=== PATIENT | male | born 1965 | race Caucasian/White ===

== ENCOUNTER 2024-06-21 23:49 | Emergency (ER) | payer SELFPAY ==
--- NOTE | ~2024-06-21 | XR_ITS ---
Portable chest x-ray Comparison: None Clinical History: Dyspnea Findings: Lungs are clear, without focal consolidation or pleural effusion. Cardiomediastinal silho uette is mildly prominent, with pacemaker device. Bones and soft tissues are unremarkable. Impression: Clear lungs. Mild cardiomegaly with pacemaker device. Reviewed, dictated and finalized at location . Impression: Clear lungs. Mild cardiomegaly with pacemaker device.
--- NOTE | ~2024-06-21 | CT_ITS ---
CT of the Abdomen and Pelvis: Indication: Bloating Technique: 2.5 mm axial scans were obtained through the abdomen and pelvis following intravenous adm inistration of 100 cc of Omnipaque 350. Dose reduction technique was used on this scan by utilizing a utomated exposure control and iterative reconstruction technique. The dose-length product (DLP) was 2 02.65 mGy-cm. Findings: Scans through the lung bases are unremarkable. Cardiomegaly noted. The liver, spleen, pancreas, adrenals and kidneys are within normal limits. Probable mild gallbladder wall thickening present, nonspecific. There are atherosclerotic calcifications of the aorta. No lym phadenopathy. No bowel obstruction or bowel wall thickening. There is no evidence to suggest acute appendicitis. Images through the pelvis were performed. Urinary bladder unremarkable. No pelvic mass seen. No ascit es. Impression: Mild gallbladder wall thickening, nonspecific. Cardiomegaly. No other significant findings. Reviewed, dictated and finalized at [facility]. Impression: Mild gallbladder wall thickening, nonspecific. Cardiomegaly. No other significant findings.
[2024-06-21 23:50] VITALS: BP 108/91; PULSE 111; RESP 24; TEMP 36.2; O2SAT 100
[2024-06-22] VITALS (13 sets, daily range): BP systolic 102–117; BP diastolic 75–96; PULSE 95–115; RESP 14–21; TEMP 36.6; O2SAT 97–100
--- NOTE | 2024-06-22 00:08 | ECG_ITS ---
Test Date: 2024-06-22 00:23:10 Measurements Intervals [place] Rate: 114 P: 75 KS: 196 QRS: -63 QRSD: 106 T: 80 QT: 326 QTc: 451 Interpretive Statements SINUS TACHYCARDIA LEFT ATRIAL ENLARGEMENT BORDERLINE AV CONDUCTION DELAY LEFT ANTERIOR FASCICULAR BLOCK ANTEROSEPTAL INFARCT, AGE INDETERMINATE BORDERLINE ST-T WAVE ABNORMALITY - HIGH LATERAL LEADS PEAKED T WAVES- CONSIDER HYPERKALEMIA BASELINE ARTIFACT- I, AVR, AVL ABNORMAL ECG No previous ECG available for comparison Electronically Signed On 06-25-2024 06:17:47 CDT by Max Rivers D.O.
--- NOTE | 2024-06-22 00:12 | ED.SOB ---
HPI - SOB/Dyspnea General Chief Complaint: Shortness of Breath/Dyspnea Stated Complaint: SOB Time Seen by Provider: 06/21/24 23:57 Source: patient and family Limitations: no limitations History of Present Illness HPI Narrative: this is a 58-year-old male with a history of CHF and has an implantable defibrillator that presents with 3 day history of shortness of breath increasing over the past few hours with some mild orthopnea with no fever chills no chest pain, has been having abdominal discomfort and bloating with some nausea with no vomiting no diarrhea constipation no fever chills. MD elicited complaint: shortness of breath Pertinent past history: congestive heart failure Onset (ago): day(s) Context: occurred during exertion Timing: constant Severity: moderate Exacerbating factors: lying flat and exertion Known history of: congestive heart failure Related Data Allergies Allergy/AdvReac Type Severity Reaction Status Date / Time No Known Allergies Allergy Verified 06/21/24 23:56 Review of Systems Review of Systems: All systems reviewed & are unremarkable except as noted in HPI and below PMFSH Past Medical History Medical History CHF (congestive heart failure) Exam Const: General: healthy appearing and no acute distress Nutritional Appearance: well nourished and thin Orientation/consciousness: patient oriented x3 Limitations: no limitations HENMT: Head: normal to inspection Neck: Neck: normal visual inspection, no lymphadenopathy and no meningeal signs Chest: Chest palpation & inspection: normal inspection of the chest Resp: Effort & Inspection: normal respiratory effort Auscultation: crackles Cardio: Rate: regular rate Rhythm: regular rhythm Heart sounds: Murmur heart sound present GI: Auscultation: normal bowel sounds : General: Yes bladder normal to palpation Skin: General skin exam: normal color Rashes: no rashes Neuro: General: patient oriented x3, moves all extremities, no meningeal signs and no focal motor deficits Extrem: General: normal to inspection, no clubbing, cyanosis or edema and no pedal edema Course Vital Signs Vital signs: Vital Signs Temperature 36.2 C L 06/21/24 23:50 Pulse Rate 111 H 06/21/24 23:50 Respiratory Rate 24 H 06/21/24 23:50 Blood Pressure 108/91 H 06/21/24 23:50 Pulse Oximetry 100 06/21/24 23:50 Oxygen Delivery Room Air 06/21/24 23:50 Temperature 36.6 C 06/22/24 03:56 Pulse Rate 95 06/22/24 03:56 Respiratory Rate 18 06/22/24 03:56 Blood Pressure 112/86 06/22/24 03:56 Pulse Oximetry 100 06/22/24 03:56 Oxygen Delivery Room Air 06/22/24 03:56 MDM - SOB/Dyspnea Lab Data 06/22/24 00:25 06/22/24 00:25 Labs: Lab Results 06/22/24 06/22/24 Range/Units 00:25 00:52 WBC 8.7 (4.8-10.8) K/mm3 RBC 4.35 L (4.70-6.10) M/mm3 Hgb 13.2 L (14.0-18.0) g/dL Hct 41.9 (40.0-54.0) % MCV 96.3 (78.0-102.0) fL MCH 30.3 (27.0-31.0) pg MCHC 31.5 L (32-36) g/dL RDW 14.6 H (11.6-14.4) % Plt Count 298 (150-420) K/mm3 MPV 9.3 (8.7-11.0) fl Immature Gran % (Auto) 0.2 H (0.0-0.0) % Neut % (Auto) 63.3 (50.0-70.0) % Lymph % (Auto) 23.5 (18.0-42.0) % [place] % (Auto) 9.9 (2.0-11.0) % Eos % (Auto) 2.2 (1.0-6.0) % Baso % (Auto) 0.9 (0.0-1.0) % Lymph # (Auto) 2.04 (1.10-4.50) K/mm3 [place] # (Auto) 0.86 (0.10-0.90) K/mm3 Eos # (Auto) 0.19 (0.02-0.50) K/mm3 Baso # (Auto) 0.08 (0.00-0.10) K/mm3 Abs Immat Gran (auto) 0.02 H (0.00-0.00) K/mm3 Absolute Neuts (auto) 5.48 (1.70-7.20) K/mm3 Absolute Nucleated RBC 0.00 (0.00-0.00) K/mm3 Nucleated RBC % 0.0 (0-0.0) % PT 12.5 H (9.50-12.1) Seconds INR 1.1 APTT 29.6 (23.9-30.70) Sec Sodium 138 (136-145) mmol/L Potassium 4.9 (3.5-5.1) mmol/L Chloride 102 (98-108) mmol/L Carbon Dioxide 26 (21-32) mmol/L Anion Gap 10 (4-12) mmol/L BUN 25 H (7-18) mg/dL Creatinine 1.16 (0.70-1.30) mg/dL Estim Creat Clear Calc 58 ml/min Estimated GFR > 60 (59 - ) Glucose 86 (70-99) mg/dL Calculated Osmolality 289 (285-295) mOsm/kg Lactic Acid 1.4 (0.4-2.0) mmol/L Calcium 8.6 (8.5-10.1) mg/dL Magnesium 1.9 (1.8-2.4) mg/dL Total Bilirubin 0.8 (0.00-1.00) mg/dL AST 31 (15-37) U/L ALT 31 (16-63) U/L Alkaline Phosphatase 118 H (46-116) U/L Troponin I 33.6 (0.00-60.4) ng/L NT-Pro-B Natriuret Pep 7081 H (0-125) pg/mL Total Protein 7.9 (6.4-8.2) g/dL Albumin 3.7 (3.4-5.0) g/dL Urine Color Light yellow (Yellow) Urine Appearance Clear (Clear) Urine pH 5.5 (5.0-8.0) Ur Specific [place] 1.015 (1.010-1.020) Urine Protein Trace H (Negative) Urine Glucose (UA) Trace H (Negative) Urine Ketones Negative (Negative) Ur Blood (Man) Negative (Negative) Urine Nitrate Negative (Negative) Urine Bilirubin Negative (Negative) Urine Urobilinogen 0.2 (0.2-1.0) mg/dL Leukocyte Esterase Rfl Negative (Negative) ANNIKA/UL Urine RBC 0-2 (0-2) /hpf Urine WBC 0-3 (0-3) /hpf Ur Squamous Epith Cells None seen (Few) /hpf Urine Bacteria None seen (None) /hpf Influenza A (RT-PCR) Negative (Negative) Influenza B (RT-PCR) Negative (Negative) RSV (RT-PCR) Negative (Negative) SARS-CoV-2 RNA (RT-PCR) Negative (Negative) Critical Care Time Critical Care Time Critical Care Time: No Discharge Plan Discharge Clinical Impression: CHF (congestive heart failure) Qualifiers: Heart failure type: systolic Heart failure chronicity: unspecified Qualified Code(s): I50.20 - Unspecified systolic (congestive) heart failure Patient Disposition: Home Condition: Stable Instructions: Antibiotic Form, Heart Failure (ED) Additional Instructions: advised to follow-up with primary care physician/ document restorer within 1 week for further evaluation and treatment. Patient Language: Greek Prescriptions: New furosemide [Lasix] 20 mg tablet 20 mg PO DAILY Qty: 7 0RF Follow-up/Referrals: Jonn Franco DO [Primary Care Provider] - UNKNOWN,DOCTOR [Non-Staff] - Time of Disposition: 03:47
[2024-06-22 00:31] LABS: Basophils Absolute Auto 0.08 K/mm3 (0.00-0.10); Basophils Percent Auto 0.9 % (0.0-1.0); Eosinophils Absolute Auto 0.19 K/mm3 (0.02-0.50); Eosinophils Percent Auto 2.2 % (1.0-6.0); Hematocrit 41.9 % (40.0-54.0); Hemoglobin 13.2 g/dL (14.0-18.0); Immature Granulocyte Absolute 0.02 K/mm3 (0.00-0.00); Immature Granulocyte Percent A 0.2 % (0.0-0.0); Lymphocytes Absolute Auto 2.04 K/mm3 (1.10-4.50); Lymphocytes Percent Auto 23.5 % (18.0-42.0); Mean Corpuscular HGB Conc 31.5 g/dL (32-36); Mean Corpuscular Hemoglobin 30.3 pg (27.0-31.0); Mean Corpuscular Volume 96.3 fL (78.0-102.0); Mean Platelet Volume 9.3 fl (8.7-11.0); Monocytes Absolute Auto 0.86 K/mm3 (0.10-0.90); Monocytes Percent Auto 9.9 % (2.0-11.0); Neutrophils Absolute Auto 5.48 K/mm3 (1.70-7.20); Neutrophils Percent Auto 63.3 % (50.0-70.0); Platelet Count Result 298 K/mm3 (150-420); Red Blood Count 4.35 M/mm3 (4.70-6.10); Red Cell Distribution Width 14.6 % (11.6-14.4); White Blood Count 8.7 K/mm3 (4.8-10.8)
[2024-06-22] MEDS: FUROSEMIDE INJ 40 MG/4 ML VIAL IV PUSH (00:38)
--- NOTE | 2024-06-22 00:39 | PC.NURSE ---
Pt resting and watching TV, informed on wait times for lab results, continuing to monitor, call perera at side.
[2024-06-22 00:42] LABS: INR 1.1; Partial Thromboplastin Time 29.6 Sec (23.9-30.70); Prothrombin Time 12.5 Seconds (9.50-12.1)
[2024-06-22 00:47] LABS: Lactic Acid Reflex 1.4 mmol/L (0.4-2.0)
[2024-06-22 00:48] LABS: Alanine Aminotransferase 31 U/L (16-63); Albumin Level 3.7 g/dL (3.4-5.0); Alkaline Phosphatase 118 U/L (46-116); Anion Gap 10 mmol/L (4-12); Aspartate Amino Transferase 31 U/L (15-37); Bilirubin,Total 0.8 mg/dL (0.00-1.00); Blood Urea Nitrogen 25 mg/dL (7-18); Calcium 8.6 mg/dL (8.5-10.1); Carbon Dioxide 26 mmol/L (21-32); Chloride 102 mmol/L (98-108); Estimated CRCL calculation 58 ml/min; Estimated Glomerular Filt Rate > 60; Glucose 86 mg/dL (70-99); Magnesium 1.9 mg/dL (1.8-2.4); NT Pro B Type Natriuretic Pept 7081 pg/mL (0-125); Osmolality Calculated 289 mOsm/kg (285-295); Potassium 4.9 mmol/L (3.5-5.1); Sodium 138 mmol/L (136-145); Total Protein 7.9 g/dL (6.4-8.2); Troponin I 33.6 ng/L (0.00-60.4)
[2024-06-22 01:00] LABS: Add Urine Microscopic? YES; Appearance Urine Clear (Clear); Bilirubin Urine Negative (Negative); Blood Urine Negative (Negative); Color Urine Light Yellow (Yellow); Glucose Urine UA Trace (Negative); Ketones Urine Negative (Negative); Leukocyte Esterase Ur Negative LEU/UL (Negative); Nitrate Urine Negative (Negative); Protein Urine Trace (Negative); Specific Grav Ur 1.015 (1.010-1.020); Urobilinogen Urine 0.2 mg/dL (0.2-1.0); pH Urine 5.5 (5.0-8.0)
[2024-06-22 01:07] LABS: Bacteria Urine None seen /hpf; RBC Urine 0-2 /hpf (0-2); Squamous Epithelial Cell Urine None seen /hpf (Few); WBC Urine 0-3 /hpf (0-3)
[2024-06-22] MEDS: ALPRAZolam (*CRX) 0.5 MG TABLET PO (01:20)
--- NOTE | 2024-06-22 01:24 | PC.NURSE ---
Pt back from CT of abd. Informed of wait times for reports. Pt using urinal bedside and monitoring output. VSS, STach on monitor. No c/o at this time, watching TV w/ s.o. at bedside.
[2024-06-22 01:33] LABS: Influenza A QL RT-PCR Negative (Negative); Influenza B QL RT-PCR Negative (Negative); RSV RNA, RT-PCR Negative (Negative); SARS-CoV-2 RNA PCR Negative (Negative)
--- NOTE | 2024-06-22 03:07 | PC.NURSE ---
Pt sleeping and resting comfortably, RR even and nonlabored, pt continues to urinate using urinal bedside and reported that he is feeling less SOB. Continuing to monitor and await CT report.
--- NOTE | 2024-06-22 03:48 | PC.NURSE ---
Pt sleeping comfortably, RR even and nonlabored, ERP in to discuss tests and POC for d/c home and f/u w/ PCP and spout worker. Pt reports feeling better.
--- NOTE | 2024-06-24 13:15 | PC.NURSE ---
Preliminary blood culture report; no growth to date.
--- NOTE | 2024-06-28 14:24 | PC.NURSE ---
Final blood culture report; no growth after 5 days.
== END 2024-06-22 03:56 | disposition home or self-care (01) ==
PROVIDERS: Emergency Provider Emergency Medicine; PCP Family Medicine
DX: I50.20 Unspecified systolic (congestive) heart failure (principal); Z20.822 Contact with and (suspected) exposure to COVID-19
CPT/HCPCS: 36415; 71045; 74177; 80053; 81001; 83605; 83735; 83880; 84484; 85025; 85610; 85730; 87040; 87637; 93005; 96374; 99284; A9270; J1938; Q9967